=== PATIENT | female | born 1950 ===

== ENCOUNTER 2017-07-12 06:37 | Day surgery (SDC) | payer OTHER ==
[~2017-07-12 06:37] MED LIST: B-121000 MCG PO; ENALAPRIL MALEAT5 MG PO; FENOFIBRATE160 MG PO; FIORICET PO; HYDROCHLOROTHIA25 MG PO; METFORMIN HCL500 MG PO; NEURONTIN300 MG PO; TOPROL XL25 MG PO; VITAMIN D35000 UNI1 PO
== END 2017-07-12 14:13 | disposition home or self-care (01) ==
LOC: CIR.AMB 06:37
DX: M67.432 Ganglion, left wrist (principal)